=== PATIENT | male | born 1985 | race Caucasian/White ===

== ENCOUNTER 2024-05-10 07:40 | Emergency (ER) | payer MEDICAID ==
[2024-05-10] MEDS: Sodium Chloride 0.9% 1,000 ML IV SCH (07:45)
[2024-05-10] MEDS: fentaNYL 100 MCG/2 ML SDV IVPUSH ONE (07:58)
[2024-05-10 08:26] LABS: BASOPHILS ABSOLUTE AUTO 0.05 K/uL (0.02-0.10); BASOPHILS PERCENT AUTO 0.6 % (0.0-0.5); EOSINOPHILS ABSOLUTE AUTO 0.27 K/uL (0.04-0.40); EOSINOPHILS PERCENT AUTO 3.2 % (1.0-5.0); HEMOGLOBIN 13.4 g/dL (13.0-18.0); LYMPHOCYTES ABSOLUTE AUTO 2.23 K/uL (1.50-4.00); LYMPHOCYTES PERCENT AUTO 26.2 % (20.0-40.0); MEAN CORPUSCULAR HEMOGLOBIN 30.7 pg (27.0-32.0); MEAN CORPUSCULAR HGB CONC 34.4 g/dL (31.0-35.0); MEAN CORPUSCULAR VOLUME 89 fL (76-96); MEAN PLATELET VOLUME 10.2 fL (6.0-10.0); MONOCYTES ABSOLUTE AUTO 0.93 K/uL (0.20-0.80); MONOCYTES PERCENT AUTO 10.9 % (3.0-10.0); NEUTROPHILS ABSOLUTE AUTO 5.04 K/uL (2.00-7.50); NEUTROPHILS PERCENT AUTO 59.1 % (45.0-70.0); PLATELET COUNT,PLT 216 K/uL (150-400); RED BLOOD CELL COUNT 4.36 M/uL (4.50-6.50); RED CELL DISTRIBUTION WIDTH 12.5 % (11.0-16.0); WHITE BLOOD CELL COUNT,WBC 8.5 K/uL (4.0-11.0)
[2024-05-10 08:37] LABS: ALBUMIN 3.4 g/dL (3.4-5.0); ANION GAP 14.3 mmol/L (5.0-15.0); BILIRUBIN TOTAL 0.4 mg/dL (0.0-1.0); CALCIUM 7.8 mg/dL (8.5-10.1); CARBON DIOXIDE,CO2 25.4 mmol/L (21.0-32.0); POTASSIUM,K 3.7 mmol/L (3.5-5.1); PROTEIN TOTAL,TP 6.7 g/dL (6.4-8.2)
[2024-05-10] MEDS: HYDROmorphone 2 MG/ML Syringe IVPUSH PRN (08:38)
[2024-05-10] MEDS: Lactated Ringers 1,000 ML IV SCH (08:50)
[2024-05-10 08:52] LABS: BUN/CREATININE RATIO 12.2 (6-25); CREATININE 1.23 mg/dL (0.70-1.30); EST CRCL DRUG DOSING (CG) 87.62 mL/min
[2024-05-10] MEDS: fentaNYL 100 MCG/2 ML SDV ONE (08:54)
[2024-05-10] MEDS: HYDROmorphone 2 MG/ML Syringe ONE (08:54)
[2024-05-10 09:02] LABS: PTT,PARTIAL THROMBOPLSTIN TIME 23.1 SECONDS (24.4-33.2)
[2024-05-10] MEDS ORDERED: Sodium Chloride 0.9% 10 ML Syringe FLUSH PRN (10:01)
== END 2024-05-10 12:10 ==
LOC: LB.ED 07:40
DX: T23.271A Burn of second degree of right wrist, initial encounter (principal); T23.272A Burn of second degree of left wrist, initial encounter; W40.9XXA Explosion of unspecified explosive materials, initial encounter
CPT/HCPCS: 16020; 36415; 51702; 80053; 85025; 85610; 85730; 96361; 96374; 96375; 99285; 99285-25; A0425; A0428; J1171; J3010; J7030; J7120